=== PATIENT | male | born 1960 | race Caucasian/White ===

== ENCOUNTER 2016-03-26 07:31 | Outpatient (CLI) ==
[2016-03-26 07:50] LABS: HEMATOCRIT 44.3 % (42.0-52.0); HEMOGLOBIN 15.6 g/dl (14.0-18.0); MEAN CORPUSCULAR HEMOGLOBIN 34.1 pg (27.0-31.0); MEAN CORPUSCULAR HGB CONC 35.2 (31.8-35.4); MEAN CORPUSCULAR VOLUME 96.9 fl (80.0-94.0); RED BLOOD COUNT 4.57 10^6/ul (4.70-6.10); WHITE BLOOD COUNT 5.94 K/ul (4.2-10.2)
[2016-03-26 08:45] LABS: ALBUMIN 3.4 g/dL (3.4-5.0); ANION GAP 12.1; BILIRUBIN,TOTAL 0.5 mg/dL (0.00-1.20); BUN/CREATININE RATIO 10.58; CALCIUM 8.7 mg/dL (8.2-10.2); CHOL/HDL RATIO 5.7 (4.5-6.4); CREATININE 0.85 mg/dL (0.60-1.10); POTASSIUM 4.1 mmol/L (3.5-5.1); TOTAL PROTEIN 6.8 g/dL (6.4-8.2)
== END 2016-03-26 07:32 | disposition home or self-care (01) ==
LOC: LAB 07:31
PROVIDERS: ATTEND Family Medicine
DX: Z00.00 Encounter for general adult medical examination without abnormal findings (principal); Z12.5 Encounter for screening for malignant neoplasm of prostate
CPT/HCPCS: 36415; 80053; 80061; 85025; 85027

== ENCOUNTER 2016-10-13 10:06 | Outpatient (CLI) ==
[2016-10-13 10:12] LABS: HEMATOCRIT 42.9 % (42.0-52.0); HEMOGLOBIN 15.6 g/dl (14.0-18.0); MEAN CORPUSCULAR VOLUME 97.3 fl (80.0-94.0); RED BLOOD COUNT 4.41 10^6/ul (4.70-6.10); WHITE BLOOD COUNT 6.48 K/ul (4.2-10.2)
[2016-10-13 10:13] LABS: MEAN CORPUSCULAR HEMOGLOBIN 35.4 pg (27.0-31.0); MEAN CORPUSCULAR HGB CONC 36.4 (31.8-35.4)
[2016-10-13 10:14] LABS: BUN/CREATININE RATIO 15.66; CREATININE 0.83 mg/dL (0.60-1.10)
[2016-10-13 10:15] LABS: ALBUMIN 3.5 g/dL (3.4-5.0); ALBUMIN/GLOBULIN RATIO 1.13; BILIRUBIN,TOTAL 0.42 mg/dL (0.00-1.20); CALCIUM 10.1 mg/dL (8.2-10.2); TOTAL PROTEIN 6.6 g/dL (6.4-8.2)
[2016-10-13 10:16] LABS: CHOL/HDL RATIO 4.8 (4.5-6.4)
== END 2016-10-13 10:07 | disposition home or self-care (01) ==
LOC: LAB 10:06
PROVIDERS: ATTEND Family Medicine
DX: K90.0 Celiac disease (principal); K58.0 Irritable bowel syndrome with diarrhea; E78.00 Pure hypercholesterolemia, unspecified; G47.33 Obstructive sleep apnea (adult) (pediatric); I10 Essential (primary) hypertension; J44.9 Chronic obstructive pulmonary disease, unspecified; R74.0 Nonspecific elevation of levels of transaminase and lactic acid dehydrogenase [LDH]; F17.200 Nicotine dependence, unspecified, uncomplicated
CPT/HCPCS: 36415; 80053; 80061; 82784; 83036; 83516; 85027

== ENCOUNTER 2017-01-23 13:28 | Outpatient (CLI) ==
[2017-01-23 13:55] LABS: OCCULT BLOOD INTERNAL QC 1 INTERNAL QC VALID; OCCULT BLOOD INTERNAL QC 2 INTERNAL QC VALID; OCCULT BLOOD INTERNAL QC 3 INTERNAL QC VALID; OCCULT BLOOD SAMPLE 1 NEGATIVE (NEGATIVE); OCCULT BLOOD SAMPLE 2 NEGATIVE (NEGATIVE); OCCULT BLOOD SAMPLE 3 NEGATIVE (NEGATIVE)
== END 2017-01-23 13:29 | disposition home or self-care (01) ==
LOC: LAB 13:28 → NONPT 13:29
PROVIDERS: ATTEND Family Medicine
DX: K51.519 Left sided colitis with unspecified complications (principal); R94.5 Abnormal results of liver function studies; R10.817 Generalized abdominal tenderness; R73.9 Hyperglycemia, unspecified; I10 Essential (primary) hypertension; Z53.20 Procedure and treatment not carried out because of patient's decision for unspecified reasons; Z68.36 Body mass index [BMI] 36.0-36.9, adult; Z87.891 Personal history of nicotine dependence
CPT/HCPCS: 82272; 87177; 87493; 89055

== ENCOUNTER 2017-09-24 09:23 | Outpatient (CLI) | payer OTHER | END 2017-09-24 09:24 | disposition home or self-care (01) | LOC: LAB 09:23 | PROVIDERS: ATTEND Family Medicine | DX: R53.83 Other fatigue (principal); T14.8XXA Other injury of unspecified body region, initial encounter; W57.XXXA Bitten or stung by nonvenomous insect and other nonvenomous arthropods, initial encounter | CPT/HCPCS: 36415; 86617; 86757; 87798 ==

== ENCOUNTER 2018-03-02 07:12 | Outpatient (CLI) | payer OTHER | END 2018-03-02 07:13 | disposition home or self-care (01) | LOC: LAB 07:12 | PROVIDERS: ATTEND Internal Medicine Gastroenterology | DX: A04.8 Other specified bacterial intestinal infections (principal) | CPT/HCPCS: 36415; 80053; 80061; 85025; 87338 ==

== ENCOUNTER 2018-03-31 08:23 | Outpatient (CLI) | payer OTHER | END 2018-03-31 08:24 | disposition home or self-care (01) | LOC: LAB 08:23 | PROVIDERS: ATTEND Nurse Practitioner Family | DX: K74.60 Unspecified cirrhosis of liver (principal); R93.5 Abnormal findings on diagnostic imaging of other abdominal regions, including retroperitoneum | CPT/HCPCS: 36415; 80053; 82105; 85025; 85610 ==

== ENCOUNTER 2018-06-07 07:04 | Outpatient (CLI) | END 2018-06-07 07:05 | disposition home or self-care (01) | LOC: LAB 07:04 | PROVIDERS: ATTEND Nurse Practitioner Family | DX: K74.60 Unspecified cirrhosis of liver (principal); Z00.00 Encounter for general adult medical examination without abnormal findings | CPT/HCPCS: 36415; 80053; 80061; 85025; 85610 ==